=== PATIENT | female | born 1995 | race Caucasian/White ===

== ENCOUNTER 2018-01-21 17:10 | Outpatient (CLI) | payer OTHER | END 2018-01-21 22:05 | disposition home or self-care (01) | LOC: OBT 17:10 → L-D 17:12 → OBT 22:05 | DX: O36.5930 Maternal care for other known or suspected poor fetal growth, third trimester, not applicable or unspecified (principal); Z3A.37 37 weeks gestation of pregnancy | CPT/HCPCS: 76815; 76818 ==

== ENCOUNTER 2018-02-11 12:31 | Inpatient (IN) | payer OTHER ==
[2018-02-11] MEDS ORDERED: BUTORPHANOL 2 MG INJ (16:25)
[2018-02-11] MEDS: BUTORPHANOL 2 MG INJ IV (16:37)
[2018-02-11 16:43] LABS: ADD MAN DIFF? NO
[2018-02-11 16:45] LABS: WHITE BLOOD COUNT 10.2 10^3/ul (4.8-10.8)
[2018-02-11 16:45] LABS: BASOPHILS % 0.2 % (0.0-2.0); EOSINOPHILS # 0.1 10^3/ul (0.0-0.5); HEMATOCRIT 37.6 % (37.0-47.0); HEMOGLOBIN 12.9 g/dl (12.0-16.0); LYMPHOCYTES # 1.8 10^3/ul (0.8-2.9); LYMPHOCYTES % 18.1 % (15.0-51.0); MEAN CORPUSCULAR HEMOGLOBIN 31.7 pg (29.0-33.0); MEAN CORPUSCULAR HGB CONC 34.3 g/dl (32.0-37.0); MEAN CORPUSCULAR VOLUME 92.4 fl (82.0-101.0); MEAN PLATELET VOLUME 12.5 fl (7.4-10.4); MONOCYTE # 0.9 10^3/ul (0.3-0.9); NEUTROPHIL # 7.2 10^3/ul (1.6-7.5); NEUTROPHILS % 70.6 % (39.0-77.0); PLATELET COUNT 209 10^3/UL (140-415); RED BLOOD COUNT 4.07 10^6/ul (4.20-5.40); RED CELL DISTRIBUTION WIDTH 14.1 % (11.5-14.5)
[2018-02-11] MEDS ORDERED: METHYLERGONOVINE 0.2 MG INJ IM (17:00)
[2018-02-11] MEDS ORDERED: LIDOCAINE 1% (MPF) 30 ML INJ INJ (17:00)
[2018-02-11] MEDS ORDERED: MISOPROSTOL 200 MCG TAB PR (17:00)
[2018-02-11] MEDS ORDERED: OXYTOCIN 30 UNITS/LR 500 ML IV (17:00)
[2018-02-11] MEDS ORDERED: CARBOPROST 250 MCG INJ IM (17:00)
[2018-02-11 17:04] LABS: INR 0.87; PARTIAL THROMBOPLASTIN TIME 25.7 Sec (25.0-35.0); PROTIME 11.9 Sec (11.9-14.9); PT RATIO 0.9
[2018-02-11] MEDS: LACTATED RINGER'S 1,000 ML IV* ×2 (17:34→19:50)
[2018-02-11] MEDS ORDERED: FENTAnyl 2MCG/ML-ROPIV 0.2% 100 ML (19:22)
[2018-02-11] MEDS ORDERED: NALOXONE (0.4 MG/ML) INJ IV (20:00)
[2018-02-12] MEDS: FENTAnyl 2MCG/ML-ROPIV 0.2% 100 ML BAG EPI (02:18)
[2018-02-12] MEDS: LACTATED RINGER'S 1,000 ML IV* ×3 (05:11→19:24)
[2018-02-12] MEDS: OXYTOCIN 30 UNITS/LR 500 ML IV (07:58)
[2018-02-12] MEDS ORDERED: HYDROCODONE/APAP (5/325) TAB PO (11:30)
[2018-02-12] MEDS ORDERED: OXYTOCIN 30 UNITS/LR 500 ML IV (11:30)
[2018-02-12] MEDS ORDERED: ACETAMINOPHEN 325 MG TAB PO (11:30)
[2018-02-12] MEDS ORDERED: DIBUCAINE 1% 30 GM OINT PR (11:30)
[2018-02-12] MEDS ORDERED: METHYLERGONOVINE 0.2 MG INJ IM (11:30)
[2018-02-12] MEDS ORDERED: MISOPROSTOL 200 MCG TAB PR (11:30)
[2018-02-12] MEDS ORDERED: CARBOPROST 250 MCG INJ IM (11:30)
[2018-02-12] MEDS: IBUPROFEN 600 MG TAB PO ×3 (12:24→23:39)
[2018-02-12] MEDS: LANOLIN 7 GM TUBE TOP (12:24)
[2018-02-12] MEDS: WITCH HAZEL/GLYCERIN PAD PR (12:25)
[2018-02-12] MEDS: BENZOCAINE 20% 56 ML SPRAY TOP (12:25)
[2018-02-12 14:55] LABS: RAPID PLASMA REAGIN NONREACTIVE (NR)
[2018-02-12] MEDS: SENNA/DOCUSATE NA (8.6MG/50MG) TAB PO (21:00)
[2018-02-13] MEDS: LACTATED RINGER'S 1,000 ML IV* (03:24)
[2018-02-13] MEDS: IBUPROFEN 600 MG TAB PO ×3 (05:49→17:36)
[2018-02-13 08:34] LABS: ADD MAN DIFF? NO
[2018-02-13 08:38] LABS: WHITE BLOOD COUNT 15.8 10^3/ul (4.8-10.8)
[2018-02-13 08:38] LABS: BASOPHILS % 0.3 % (0.0-2.0); EOSINOPHILS # 0.2 10^3/ul (0.0-0.5); EOSINOPHILS % 1.5 % (0.0-7.0); HEMOGLOBIN 11.9 g/dl (12.0-16.0); LYMPHOCYTES # 2.1 10^3/ul (0.8-2.9); LYMPHOCYTES % 13.4 % (15.0-51.0); MEAN CORPUSCULAR HEMOGLOBIN 31.6 pg (29.0-33.0); MEAN CORPUSCULAR VOLUME 92.8 fl (82.0-101.0); MEAN PLATELET VOLUME 11.7 fl (7.4-10.4); MONOCYTES % 6.6 % (0.0-11.0); NEUTROPHIL # 12.2 10^3/ul (1.6-7.5); NEUTROPHILS % 77.4 % (39.0-77.0); PLATELET COUNT 195 10^3/UL (140-415); RED BLOOD COUNT 3.77 10^6/ul (4.20-5.40); RED CELL DISTRIBUTION WIDTH 14.5 % (11.5-14.5)
[2018-02-13] MEDS: SENNA/DOCUSATE NA (8.6MG/50MG) TAB PO ×2 (09:37→21:03)
[2018-02-14] MEDS: IBUPROFEN 600 MG TAB PO ×3 (00:01→12:27)
[2018-02-14 07:51] LABS: ADD MAN DIFF? NO
[2018-02-14 07:54] LABS: WHITE BLOOD COUNT 13.7 10^3/ul (4.8-10.8)
[2018-02-14 07:54] LABS: BASOPHILS % 0.3 % (0.0-2.0); EOSINOPHILS # 0.3 10^3/ul (0.0-0.5); EOSINOPHILS % 1.9 % (0.0-7.0); HEMATOCRIT 33.9 % (37.0-47.0); HEMOGLOBIN 11.7 g/dl (12.0-16.0); LYMPHOCYTES % 14.9 % (15.0-51.0); MEAN CORPUSCULAR HEMOGLOBIN 32.3 pg (29.0-33.0); MEAN CORPUSCULAR HGB CONC 34.5 g/dl (32.0-37.0); MEAN CORPUSCULAR VOLUME 93.6 fl (82.0-101.0); MEAN PLATELET VOLUME 11.3 fl (7.4-10.4); MONOCYTES % 7.2 % (0.0-11.0); NEUTROPHIL # 10.2 10^3/ul (1.6-7.5); NEUTROPHILS % 74.7 % (39.0-77.0); PLATELET COUNT 191 10^3/UL (140-415); RED BLOOD COUNT 3.62 10^6/ul (4.20-5.40); RED CELL DISTRIBUTION WIDTH 14.4 % (11.5-14.5)
[2018-02-14] MEDS: SENNA/DOCUSATE NA (8.6MG/50MG) TAB PO (08:25)
[2018-02-14] MEDS: DIPHTH/TET/ACEL PERTUSS (ADULT) 0.5 ML VIAL IM* (09:56)
== END 2018-02-14 17:20 | disposition home or self-care (01) | DRG 775 ==
LOC: OBT 12:31 → L-D 02-12 08:29 → PP1 02-12 10:57 → OBT 12:50 → L-D 12:50
PROVIDERS: Obstetrics & Gynecology
PROC: 10E0XZZ Delivery of Products of Conception, External Approach (ICD-10-PCS; principal; 2018-02-12)
PROC: 0KQM0ZZ Repair Perineum Muscle, Open Approach (ICD-10-PCS; 2018-02-12)
DX: O70.1 Second degree perineal laceration during delivery (principal); Z37.0 Single live birth; Z3A.40 40 weeks gestation of pregnancy
CPT/HCPCS: 62319; 85025; 85610; 85730; 86592; 86850; 86900; 86901